=== PATIENT | female | born 1980 | race Two or more races ===

== ENCOUNTER 2024-02-01 17:38 | Emergency (ER) | payer OTHER ==
[~2024-02-01] VITALS: Ht 165.1 cm; Wt 70.3 kg
[2024-02-01] MEDS ORDERED: KETOROLAC TROMETHAMINE 60 MG VIAL IM ONE ×2 (18:15→18:25)
[2024-02-01] MEDS ORDERED: ORPHENADRINE CITRATE 30 MG/ML AMPUL IM ONE (18:15)
[2024-02-01] MEDS ORDERED: DICLOFENAC SODI75 MG PO (18:22)
[2024-02-01] MEDS ORDERED: NORFLEX100MG PO (18:22)
[2024-02-01] MEDS ORDERED: ORPHENADRINE CITRATE 30 MG/ML AMPUL ONE (18:24)
== END 2024-02-01 18:33 | disposition home or self-care (01) ==
LOC: ER 17:39
DX: M62.838 Other muscle spasm (principal); M54.2 Cervicalgia
CPT/HCPCS: 72040; 72070; 96372; 99283; J1885; J2360